=== PATIENT | female | born 1965 | race Caucasian/White ===

== ENCOUNTER 2018-03-02 02:32 | Emergency (ER) | payer OTHER ==
[~2018-03-02] VITALS: Ht 160 cm; Wt 64.4 kg
[~2018-03-02 02:32] MED LIST: CLONAZEPAM1 GM; PANADOL EXTRA500 MG PO; PROVENTIL0.5 ML/2.5
[2018-03-02] MEDS ORDERED: KETO10TA2 PO (04:34)
[2018-03-02] MEDS ORDERED: NORFLEX100MG PO (04:34)
== END 2018-03-02 04:38 | disposition home or self-care (01) ==
LOC: ER 02:32
DX: G43.809 Other migraine, not intractable, without status migrainosus (principal); M62.838 Other muscle spasm

== ENCOUNTER 2018-05-14 16:54 | Emergency (ER) | payer OTHER ==
[~2018-05-14] VITALS: Ht 160 cm; Wt 64.4 kg
[~2018-05-14 16:54] MED LIST changes: +KETO10TA2 PO; +NORFLEX100MG PO
== END 2018-05-14 22:18 | disposition home or self-care (01) ==
LOC: ER 16:54
DX: R51 Headache (principal); R20.0 Anesthesia of skin

== ENCOUNTER 2019-09-05 19:27 | Emergency (ER) | payer OTHER ==
[~2019-09-05] VITALS: Ht 160 cm; Wt 82.6 kg
[2019-09-06] MEDS ORDERED: ZITHROMAX500 MG PO (03:35)
[2019-09-06] MEDS ORDERED: ALBUTEROL2.5 MG/3 M IH (03:35)
[2019-09-06] MEDS ORDERED: ZYNCOF 20-400120 ML PO (03:35)
== END 2019-09-06 03:36 ==
LOC: ER 19:27
DX: B34.9 Viral infection, unspecified (principal)

== ENCOUNTER 2020-03-16 15:56 | Emergency (ER) | payer OTHER ==
[~2020-03-16] VITALS: Ht 160 cm; Wt 71.7 kg
[~2020-03-16 15:56] MED LIST changes: +ALBUTEROL2.5 MG/3 M IH; +ZITHROMAX500 MG PO; +ZYNCOF 20-400120 ML PO
== END 2020-03-16 17:45 | disposition home or self-care (01) ==
LOC: ER 15:56
DX: S39.012A Strain of muscle, fascia and tendon of lower back, initial encounter (principal); X50.9XXA Other and unspecified overexertion or strenuous movements or postures, initial encounter; Y93.89 Activity, other specified; Y92.098 Other place in other non-institutional residence as the place of occurrence of the external cause; Y99.8 Other external cause status

== ENCOUNTER 2020-06-23 16:06 | Emergency (ER) | payer OTHER ==
[~2020-06-23] VITALS: Ht 160 cm; Wt 78.0 kg
[2020-06-23] MEDS ORDERED: DICLOFENAC SODI75 MG PO (16:55)
== END 2020-06-23 17:16 | disposition home or self-care (01) ==
LOC: ER 16:06
DX: M25.511 Pain in right shoulder (principal)